=== PATIENT | male | born 1950 | race Hispanic/Latino ===

== ENCOUNTER 2017-10-18 05:24 | Emergency (ER) | payer MEDICARE, BC ==
[2017-10-18 05:32] VITALS: TEMP 98.9
--- NOTE | 2017-10-18 05:44 | ED PDOC ---
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 Patient states he missed a step as he was going down the stairs and fell onto his back and left knee. He denies any head injuries or LOC. No further medical complaints. PMD: Dr. Ramirez Past Medical History Reviewed: Historical Data, Nursing Documentation, Vital Signs Vital Signs: Last Vital Signs Temp 98.9 F 10/18/17 05:29 Pulse 74 10/18/17 05:29 Resp 18 10/18/17 05:29 BP 134/78 10/18/17 05:29 Pulse Ox 100 10/18/17 05:29 - Medical History PMH: Anxiety, HTN - Surgical History Surgical History: No Surg Hx - Family History Family History: States: No Known Family Hx - Social History Current smoker - smoking cessation education provided: No Alcohol: None Drugs: Denies - Allergies Allergies/Adverse Reactions: Allergies Allergy/AdvReac Type Severity Reaction Status Date / Time Penicillins Allergy Mild RASH Verified 10/18/17 05:33 Review of Systems ROS Statement: Except As Marked, All Systems Reviewed And Found Negative Musculoskeletal: Positive for: Back Pain (low), Leg Pain (left knee) Physical Exam - Reviewed Nursing Documentation Reviewed: Yes Vital Signs Reviewed: Yes - Physical Exam Appears: Positive for: No Acute Distress Head Exam: Positive for: ATRAUMATIC, NORMAL INSPECTION, NORMOCEPHALIC Skin: Positive for: Normal Color, Warm, Dry Eye Exam: Positive for: Normal appearance Neck: Positive for: Painless ROM Back: Positive for: Normal Inspection. Negative for: L CVA Tenderness, R CVA Tenderness, Vertebral Tenderness Extremity: Positive for: Normal ROM (left knee full ROM). Negative for: Tenderness, Deformity, Swelling Neurologic/Psych: Positive for: Alert, Oriented - ECG O2 Sat by Pulse Oximetry: 100 (RA) Medical Decision Making Medical Decision Making: Time: 05:33 Initial Impression: 67 y/o male with back pain and knee pain s/p fall Initial Plan: --Knee 3 views LT [RAD] --Lumbar Spine Comp w/ Flex ext [RAD] --Motrin tab 600 mg PO --Reevaluation 06:10 -Left knee xray showed no fracture or dislocation. LS x-ray showed no fracture or dislocation. Patient is medically stable for discharge. Diagnosis knee strain and back contusion ----- Scribe Attestation: Documented by Salomon Correa, acting as a scribe for Santi Pettit MD. Provider Scribe Attestation: All medical record entries made by the Scribe were at my direction and personally dictated by me. I have reviewed the chart and agree that the record accurately reflects my personal performance of the history, physical exam, medical decision making, and the department course for this patient. I have also personally directed, reviewed, and agree with the discharge instructions and disposition. Disposition - Clinical Impression Clinical Impression: Back strain, Knee strain - Disposition Disposition: Routine/Home Disposition Time: 06:10 Condition: STABLE Instructions: Low Back Pain in Adults, Knee Pain Forms: [employer] (Syriac)
[2017-10-18 06:17] VITALS: BP 137/76; PULSE 82; RESP 16; O2SAT 98
--- NOTE | 2017-10-18 08:32 | RAD ---
Date of service: 10/18/2017 PROCEDURE: Left Knee Radiographs. HISTORY: Pain. COMPARISON: None. FINDINGS: BONES: Anterior patellar cortical hyperostoses. No fracture. JOINTS: Minimal medial femoral tibial joint space narrowing -no prominent spurring JOINT EFFUSION: None. OTHER FINDINGS: None. IMPRESSION: No fracture or lytic lesion. Other findings -as above.
--- NOTE | 2017-10-18 08:38 | RAD ---
Date of service: 10/18/2017 PROCEDURE: Radiographs of the Lumbar Spine. HISTORY: pain COMPARISON: No prior. FINDINGS: BONES: Approximately 3 mm anterior subluxation of L4 relative to L5. . No spondylolysis seen No fracture. L4-5 and L5-S1 sclerotic and hypertrophic facet arthrosis. DISC SPACES: Unremarkable. OTHER FINDINGS: Prostatic radiation seeds in place IMPRESSION: No fracture or spondylolysis. L4-5 and L5-S1 sclerotic and hypertrophic arthrosis.
== END 2017-10-18 06:32 | disposition home or self-care (01) ==
LOC: H.ER 05:24
DX: S39.012A Strain of muscle, fascia and tendon of lower back, initial encounter (principal); S83.92XA Sprain of unspecified site of left knee, initial encounter; W19.XXXA Unspecified fall, initial encounter; Y92.89 Other specified places as the place of occurrence of the external cause; F41.9 Anxiety disorder, unspecified; I10 Essential (primary) hypertension; Z88.0 Allergy status to penicillin

== ENCOUNTER 2017-10-30 09:52 | Inpatient (IN) | payer MEDICARE, BC ==
[2017-10-30 09:55] VITALS: O2SAT 99; BMI 25.1
--- NOTE | 2017-10-30 10:47 | ED PDOC ---
HPI: Psych/Substance Abuse Time Seen by Provider: 10/30/17 10:21 Chief Complaint (Nursing): Psychiatric Evaluation Chief Complaint (Provider): anxiety History Per: Patient History/Exam Limitations: no limitations Current Symptoms Are (Timing): Intermittent Episodes Modifying Factor(s): None Severity: Moderate Associated Symptoms: Anxiety, Paranoia. denies: Suicidal Plan Additional Complaint(s): 67yo male c/o "needing to take too many pills" - xanax 0.25mg for anxiety and racing thoughts, states has taken xanax for many years, last few days has required more pills for effect, c/o some sleeplessness, denies suicidal thoughts or hallucinations Past Medical History Reviewed: Historical Data, Nursing Documentation, Vital Signs Vital Signs: Last Vital Signs Temp 98.2 F 10/30/17 09:54 Pulse 77 10/30/17 09:54 Resp BP 147/86 10/30/17 09:54 Pulse Ox 99 10/30/17 09:54 - Medical History PMH: Anxiety, Depression, HTN Other PMH: anxiety - Family History Family History: States: Unknown Family Hx - Social History Current smoker - smoking cessation education provided: No Alcohol: None - Home Medications Home Medications: Ambulatory Orders Medication Instructions Recorded ALPRAZolam [Xanax] 0.25 mg PO TID PRN 10/30/17 Azilsartan Med/Chlorthalidone 1 tab PO DAILY 10/30/17 [Edarbyclor 40-12.5 mg Tablet] DULoxetine [Cymbalta] 20 mg PO Q12 10/30/17 - Allergies Allergies/Adverse Reactions: Allergies Allergy/AdvReac Type Severity Reaction Status Date / Time Penicillins Allergy Mild RASH Verified 10/18/17 05:33 - Laboratory Results Result Diagrams: 10/30/17 10:59 10/30/17 10:59 - ECG ECG: Positive for: Interpreted By Md ECG Rhythm: Positive for: Normal ST Segment, Sinus Rhythm Rate: 62 O2 Sat by Pulse Oximetry: 99 Pulse Ox Interpretation: Normal - Radiology X-Ray: Interpreted by Md X-Ray Interpretation: No Acute Disease Medical Decision Making Medical Decision Making: per crisis admit for psychiatric stabilization labs reviewed and clinically unremarkable medically stable for psychiatric admission at time of emergency evaluation Disposition - Clinical Impression Clinical Impression: Anxiety - Patient ED Disposition Is Patient to be Admitted: Yes - Disposition Referrals: Non [facility] Provider, [Primary Care Provider] - Disposition Time: 11:50 Condition: STABLE Forms: [employer] (Bengali) - Pt Status Changed To: Hospital Disposition Of: Inpatient - Admit Certification Admit to Inpatient:: After my assessment, the patient will require hospitalization for at least two midnights. This is because of the severity of symptoms shown, intensity of services needed, and/or the medical risk in this patient being treated as an outpatient. - POA Present On Arrival: None
[2017-10-30 11:04] LABS: BASO % 0.7 % (0.0-2.0); EOS # 0.1 K/uL (0.0-0.7); EOS % 1.4 % (0.0-4.0); HEMOGLOBIN 13.9 g/dL (12.0-18.0); LYMPH # 0.9 K/uL (1.0-4.3); LYMPH % 17.2 % (20.0-40.0); MEAN CELL VOLUME 85.6 fl (80.0-94.0); MEAN CORPUSCULAR HEMOGLOBIN 31.1 pg (27.0-31.0); MEAN CORPUSCULAR HGB CONC 36.3 g/dL (33.0-37.0); MEAN PLATELET VOLUME 6.5 fl (7.2-11.7); MONO # 0.7 K/uL (0.0-0.8); MONO % 12.8 % (0.0-10.0); NEUT # 3.7 K/uL (1.8-7.0); NEUT % 67.9 % (50.0-75.0); NRBC % 0.1 % (0.0-0.0); RBC 4.48 Mil/uL (4.40-5.90); RED CELL DISTRIBUTION WIDTH 13.2 % (11.5-14.5); WHITE BLOOD COUNT 5.4 K/uL (4.8-10.8)
[2017-10-30 11:31] LABS: ALB/GLOB RATIO 1.4 (1.0-2.1); ALBUMIN 4.3 g/dL (3.5-5.0); ALT/SGPT 18 U/L (21-72); AST/SGOT 23 U/L (17-59); BLOOD UREA NITROGEN 21 mg/dl (9-20); CALCIUM 9.8 mg/dL (8.4-10.2); GFR AFRICAN-AMERICAN > 60; GFR NON-AFRICAN AMERICAN > 60
[2017-10-30 11:44] LABS: BARBITURATES, UR NEGATIVE (NEGATIVE); BENZODIAZEPINES, UR POSITIVE (NEGATIVE); OPIATES, UR NEGATIVE (NEGATIVE); PHENCYCLIDINE, UR NEGATIVE (NEGATIVE)
--- NOTE | 2017-10-30 12:54 | RAD ---
Date of service: 10/30/2017 HISTORY: Infiltrate. COMPARISON: Upper FINDINGS: LUNGS: No active pulmonary disease. PLEURA: No significant pleural effusion identified, no pneumothorax apparent. CARDIOVASCULAR: No radiographic findings to suggest acute or significant cardiovascular disease. OSSEOUS STRUCTURES: No significant abnormalities. VISUALIZED UPPER ABDOMEN: Normal. OTHER FINDINGS: None. IMPRESSION: No active disease.
[2017-10-30] MEDS ORDERED: Alum-Mag Hydrox-Simethicone Susp (30 mL) PO PRN (14:22)
[2017-10-30] MEDS ORDERED: Bismuth Subsalicylate 262 mg/15 ml Sus (240 ml) PO PRN (14:22)
[2017-10-30] MEDS ORDERED: Magnesium Hydroxide Susp 30 ml UD PO PRN (14:22)
[2017-10-30 15:27] LABS: HDL CHOLESTEROL 38 MG/DL (30-70)
[2017-10-30 15:37] LABS: LDL CHOLESTEROL 108 mg/dL (0-129)
--- NOTE | 2017-10-30 17:31 | PCM.PSYCH ---
Initial Psychiatric Evaluation - Initial Psychiatric Evaluation Chief Complaint (in patient's own words): came to emergency room complaining of anxiety and panic attacks Patient's Reaction to Hospitalization: signed in voluntarily History of Present Illness and Precipitating Events: Pt is a 67 year old male self referred to this ED secondary to Anxiety and panic attacks. Pt reported that he has been feeling anxious for the last two months and have been experiencing more panic attacks over the last several days. Pt stated that last night, he took 4-5 .25mg Xanax pills to avoid a panic attack, however, he was still unable to sleep. Pt reported he has financial stressors which cause racing thoughts. He stated that he is retired, lives alone and does not have a support system. Pt stated that he experienced a traumatic event last year and did not have anyone to help him. Pt reported that last year, he was on a ladder and fell off. When he fell, the rope was tangled around his feet which caused Pt to hang upside down by his feet for 8 hours until someone finally heard him and helped him. HIstory reveals that in past hears voices at night, however, he is unable to make out what they are saying. He reported that he is nervous to drive and thinks he may hurt someone if he takes a Xanax and begins to drive because the pills make him groggy. . .pt reports panic began approx. 4 five years ago when his sister reportedly 2nd to exposure from 911. pt denies psychiatric care was receiving care from [place] pmd [place]. completed 10th grade, worked for 33 years for [employer] is retired x 10 years, likes to go for walks. is unmarried, no children, mother possibly with undiagnosed depression, pt denies inpt psych adm., denies suicidal attempts. reports approx. 8 panic attacks per month, lasting about 15 min, feeling like world is closing in, just waits for them to pass, when not having panic denies being anxious, cannot pinpoint context of panic (triggers) Current Medications: Active Medications Generic Name Dose Route Start Last Admin Trade Name Freq PRN Reason Stop Dose Admin Acetaminophen 650 mg 10/30/17 14:22 Tylenol 325mg Tab PO Q4 PRN Pain, moderate (4-7) Al Hydrox/Mg Hydrox/Simethicone 30 ml 10/30/17 14:22 Maalox Plus 30 Ml PO Q4 PRN Dyspepsia Alprazolam 0.25 mg 10/30/17 14:39 Xanax PO 11/06/17 14:40 TID PRN Anxiety Bismuth Subsalicylate 524 mg 10/30/17 14:22 Pepto-Bismol PO Q4 PRN Diarrhea Duloxetine HCl 20 mg 10/30/17 21:00 Cymbalta PO Q12 BETSY Home Med 1 tab 10/31/17 09:00 Azilsartan Med/Chlorthalidone [Edarbyclor 40-12.5 Mg Tablet] PO DAILY BETSY Lorazepam 0.5 mg 10/30/17 14:22 Ativan PO 11/13/17 14:23 HS PRN Insomnia Lorazepam 0.5 mg 10/30/17 14:22 Ativan PO 11/13/17 14:23 Q6 PRN Anixety/Agitation Magnesium Hydroxide 30 ml 10/30/17 14:22 Milk Of Magnesia PO HS PRN Constipation Pneumococcal Polyvalent Vaccine 0.5 ml 10/31/17 09:00 Pneumovax 23 Vaccine IM 10/31/17 09:01 .ONCE ONE Past Psychiatric History - Past Psychiatric History Prior Professional Help: treated by private physician assistant primary care with alprazolam for panic History of Abuse: denies History of ETOH/Drug Use: denies History of Family Illness: mother with possible undiagnosed depression Pertinent Medical Hx (Current Medical&Sleep Prob, Allergies): Allergies Allergy/AdvReac Type Severity Reaction Status Date / Time Penicillins Allergy Mild RASH Verified 10/18/17 05:33 ALPRAZolam [Xanax] 0.25 mg PO TID PRN 10/30/17 Azilsartan Med/Chlorthalidone [Edarbyclor 40-12.5 mg Tablet] 1 tab PO DAILY 09/11 DULoxetine [Cymbalta] 20 mg PO Q12 10/30/17 Review of Systems - Psychiatric Psychiatric: Anxiety, Auditory Hallucinations Additional comments: unable to understand denies known command Mental Status Examination - Personal Presentation Personal Presentation: Looks stated age - Affect Affect: Constricted - Motor Activity Motor Activity: Psychomotor Retardation - Reliability in Providing Information Reliability in Providing Information: Fair - Speech Speech: Organized - Formal Thought Process Formal Thought Process: Hallucinations Additional comments: auditory unable to understand does not recognize - Hallucinations/Delusions Hallucinations: Auditory - Obsessions/Compulsions Obsessions: No Compulsions: No - Cognitive Functions Orientation: Person, Place, Situation, Time Sensorium: Alert Attention/Concentration: Attentive Judgement: Imparied, as evidence by: Other - Risk Risk: Suicidal, Withdrawal, Diminished functioning - Strength & Assets Inventory Strength & Assets Inventory: Cooperative (decreased support assisted alprazolam use ) DSM 5 DX - DSM 5 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
--- NOTE | 2017-10-30 17:45 | PCM.BM ---
Treatment Plan Problems - Problems identified on initial assessmt Problem 1 Date Initiated: 10/30/17 Time Initiated: :43 Date resolved: 11/06/17 Assessment reference: NA Status: Active Priority: 1 Problem 2 Date Initiated: 10/30/17 Time Initiated: 44 Date resolved: 11/06/17 Assessment reference: NA Status: Active Priority: 2 Problem 3 Date Initiated: 10/30/17 Time Initiated: 44 Date resolved: 11/06/17 Assessment reference: NA Status: Active Priority: 3 - Milieu Protocol Milieu Narrative: npt admission per badr vital signs and clinical observation per unit protocol and per clinical status prns per unit protocol hospitalist consult increase cymbalta 30mg po [id number] complains of s/s anxiety/depression discharge planning in progress Discharge/Continuing Care - Treatment Team Participation Patient/Family/SO Statement: npt admission per badr vital signs and clinical observation per unit protocol and per clinical status prns per unit protocol hospitalist consult increase cymbalta 30mg po [id number] complains of s/s anxiety/depression discharge planning in progress
--- NOTE | 2017-10-30 17:47 | PCM.BM ---
Treatment Plan Problems - Problems identified on initial assessmt Problem 1 Date Initiated: 10/30/17 Time Initiated: :43 Date resolved: 11/06/17 Assessment reference: NA Status: Active Priority: 1 Problem 2 Date Initiated: 10/30/17 Time Initiated: :44 Date resolved: 11/06/17 Assessment reference: NA Status: Active Priority: 2 Problem 3 Date Initiated: 10/30/17 Time Initiated: 44 Date resolved: 11/06/17 Assessment reference: NA Status: Active Priority: 3 Treatment assets and liabiliti Patient Assests: adapts well, cooperative Patient Liabilities: live alone, poor support system - Milieu Protocol Maintain good personal hygiene: every shift Encourage regular showers, every shift Remind patient to perform daily oral care, every shift Assist patient to perform ADL's Maintain personal safety: every shift Educate patient to report safety concerns to staff, every shift Monitor environment for contraband/sharps Medication safety: Monitor for expected outcome, potential side effects: every shift, Assess barriers to learning: every shift, Assess readiness for medication education: every shift Milieu Narrative: npt admission per badr vital signs and clinical observation per unit protocol and per clinical status prns per unit protocol hospitalist consult increase cymbalta 30mg po [id number] complains of s/s anxiety/depression discharge planning in progress Discharge/Continuing Care - Treatment Team Participation Patient/Family/SO Statement: npt admission per badr vital signs and clinical observation per unit protocol and per clinical status prns per unit protocol hospitalist consult increase cymbalta 30mg po [id number] complains of s/s anxiety/depression discharge planning in progress
--- NOTE | 2017-10-30 18:19 | CARD ---
APPROVED REPORT Date of service: 10/30/2017 <Conclusion> Normal sinus rhythm Normal ECG
[2017-10-31] MEDS ORDERED: Pneumococcal 23-Valent Vaccine IM ONE (09:00)
[2017-10-31] MEDS ORDERED: Patient's Own Med (Azilsartan Med/Chlorthalidone [Edarbyclor 40-12.5 Mg Tablet] 1 TAB) PO SCH (09:00)
[2017-10-31 09:40] LABS: T4 10.5 ug/dl (5.5-11.0)
--- NOTE | 2017-10-31 15:16 | PCM.PYCHPN ---
Psychiatric Progress Note - Psychiatric Progress Note Patient seen today, length of contact: chart reviewed case discussed with team Patient Chief Complaint: reports history of fibromalgia prevously on cymbalta 20mg po bid had cymbalta increase to 60mg po x one dose(received) reports increased generalized body pain pt relates to rx-teaching related to cymbalta(duloxitine) treatment for fibromyalgia. pt requests to have cymbalta returned to 20mg po bid. review that can be done but this would not likely treat reported depression anxiety. pt seen about milieu per staff adherent with treatment. Problems Identified/Issues Discussed: alteration in mood alteration in coping hx fibromyalgia Medical Problems: per chart Diagnostic Results: per psychiatry per medicine per nursing per social work per recreational therapy DSM 5 Symptoms Update: alteration in mood possible side effects of increased cymbalta vs fibromyalgia Medication Change: Yes (decrease cymbalta 20 mg po bid ) Medical Record Reviewed: Yes Consults ordered or reviewed: pt seen by hospitalistt Mental Status Examination - Cognitive Function Orientation: Person, Place, Situation, Time Attention: WNL Concentration: WNL Association: WNL Fund of Knowledge: WN Decription of patient's judgement and insights: impaired - Mood Mood: Depressed, Anxious - Affect Affect: Constricted - Formal Thought Process Formal Thought Process: Hallucinations - Homicidal Ideation Homicidal Ideation: No Goal/Treatment Plan - Goal/Treatment Plan Need for Continued Stay: Remain at risks for inpatient hospitalization, Severe depression anxiety, Discharge may exacerbated symptoms Progress Toward Problem(s) and Goals/Treatment Plan: inpt milieu decrease cymbalta to 20mg po bid (?side effects vs s/s hx fibromyalgia) vital signs and clinical observation per unit protocol and per clinical status prns per unit protocol hospitalist consult review antihypertensive medications discharge planning in progress Estimated Date of D/C: 11/06/17 - Smoking Cessation Smoking Cessation Initiated: No Reason for not providing: pt deferred
[2017-10-31 18:04] LABS: FOLATE 19.5 ng/mL
--- NOTE | 2017-10-31 20:04 | CP.PCM.CON ---
History of Present Illness - History of Present Illness History of Present Illness: 67 yo male with no significant PMH admitted to [facility] because of anxiety and panic attack. Review of Systems - Review of Systems All systems: reviewed and no additional remarkable complaints except (aside from those mentioned above, 12 point system review were negative by me) Past Patient History - Infectious Disease Hx of Infectious Diseases: None - Past Medical History & Family History Past Medical History?: No - Past Social History Smoking Status: Never Smoked Chewing Tobacco Use: No Cigar Use: No Alcohol: None - CARDIAC Hx Cardiac Disorders: Yes Hx Hypertension: Yes - PULMONARY Hx Respiratory Disorders: No - NEUROLOGICAL HX Cerebrovascular Accident: No Hx Seizures: No - HEENT Hx HEENT Problems: No - RENAL Hx Chronic Kidney Disease: No - ENDOCRINE/METABOLIC Hx Endocrine Disorders: No - HEMATOLOGICAL/ONCOLOGICAL Hx Blood Disorders: No Hx Cancer: No Hx Human Immunodeficiency Virus (HIV): No - INTEGUMENTARY Hx Dermatological Problems: No - MUSCULOSKELETAL/RHEUMATOLOGICAL Hx Musculoskeletal Disorders: Yes Hx Back Pain: Yes Hx Falls: No - GASTROINTESTINAL Hx Gastrointestinal Disorders: No - GENITOURINARY/GYNECOLOGICAL Hx Genitourinary Disorders: No Hx Sexually Transmitted Disorders: No - PSYCHIATRIC Hx Anxiety: Yes Hx Depression: Yes Hx Physical Abuse: No Hx Sexual Abuse: No Hx Substance Use: No - SURGICAL HISTORY Hx Surgeries: No - ANESTHESIA Hx Anesthesia: No Meds Allergies/Adverse Reactions: Allergies Allergy/AdvReac Type Severity Reaction Status Date / Time Penicillins Allergy Mild RASH Verified 10/18/17 05:33 - Medications Medications: Current Medications Acetaminophen (Tylenol 325mg Tab) 650 mg PO Q4 PRN PRN Reason: Pain, moderate (4-7) Last Admin: 10/31/17 12:43 Dose: 650 mg Al Hydrox/Mg Hydrox/Simethicone (Maalox Plus 30 Ml) 30 ml PO Q4 PRN PRN Reason: Dyspepsia Alprazolam (Xanax) 0.25 mg PO TID PRN PRN Reason: Anxiety Stop: 11/06/17 14:40 Bismuth Subsalicylate (Pepto-Bismol) 524 mg PO Q4 PRN PRN Reason: Diarrhea Duloxetine HCl (Cymbalta) 20 mg PO Q12 [facility] Home Med (Azilsartan Med/Chlorthalidone [Edarbyclor 40-12.5 Mg Tablet]) 1 tab PO DAILY BETSY Lorazepam (Ativan) 0.5 mg PO HS PRN PRN Reason: Insomnia Stop: 11/13/17 14:23 Last Admin: 10/30/17 22:56 Dose: 0.5 mg Lorazepam (Ativan) 0.5 mg PO Q6 PRN PRN Reason: Anixety/Agitation Stop: 11/13/17 14:23 Losartan Potassium (Cozaar) 25 mg PO DAILY BETSY Last Admin: 10/31/17 08:39 Dose: 25 mg Magnesium Hydroxide (Milk Of Magnesia) 30 ml PO HS PRN PRN Reason: Constipation Physical Exam - Constitutional Appears: No Acute Distress - Head Exam Head Exam: ATRAUMATIC - Eye Exam Eye Exam: absent: Scleral icterus - ENT Exam ENT Exam: Mucous Membranes Moist - Neck Exam Neck exam: Negative for: Meningismus - Respiratory Exam Respiratory Exam: absent: Rales, Rhonchi, Wheezes, Respiratory Distress - Cardiovascular Exam Cardiovascular Exam: REGULAR RHYTHM, +S1, +S2 - GI/Abdominal Exam GI & Abdominal Exam: Soft. absent: Tenderness - Rectal Exam Rectal Exam: Deferred - Extremities Exam Extremities exam: Negative for: pedal edema - Neurological Exam Neurological exam: Alert, Oriented x3 - Psychiatric Exam Psychiatric exam: Normal Affect - Skin Skin Exam: Dry, Intact Results - Vital Signs Recent Vital Signs: Last Vital Signs Temp 97.7 F 10/31/17 16:22 Pulse 68 10/31/17 16:22 Resp 20 10/31/17 16:22 BP 140/77 10/31/17 16:22 Pulse Ox 99 10/30/17 12:58 - Labs Result Diagrams: 10/30/17 10:59 10/30/17 10:59 Labs: Laboratory Results - last 24 hr 10/31/17 10/31/17 07:39 07:39 Ferritin 164.0 Triglycerides 109 Cholesterol 170 LDL Cholesterol Direct 107 HDL Cholesterol 39 Vitamin B12 300 Folate 19.5 Free T4 1.33 Thyroxine (T4) 10.5 TSH 3rd Generation 1.31 Assessment & Plan (1) Anxiety Status: Acute Comment: psyche is managing
--- NOTE | 2017-11-01 16:06 | PCM.PYCHPN ---
Psychiatric Progress Note - Psychiatric Progress Note Patient seen today, length of contact: chart reviewed case discussed with team Patient Chief Complaint: pt reports that has less body pain since decreasing cymbalta from 60mg to 40mg. seen walking in unit staff report adherent with treatment, is walking about unit , wearing hospital pajamas. staff reports eats, watching tv, attended groups. reports feeling anxious at times with some depression with generalized body that varies in terms of place and sensation body aches numbness tingling Problems Identified/Issues Discussed: alteration in mood alteration in coping hx fibromyalgia Medical Problems: per chart Diagnostic Results: per psychiatry per medicine per nursing per social work per recreational therapy DSM 5 Symptoms Update: alteration in moo Medication Change: Yes (start gabapentin 100mg po tid) Medical Record Reviewed: Yes Consults ordered or reviewed: pt seen by hospitalist Mental Status Examination - Cognitive Function Orientation: Person, Place, Situation, Time Attention: WNL Concentration: WNL Association: WNL Fund of Knowledge: WN Decription of patient's judgement and insights: impaired - Mood Mood: Depressed, Anxious - Affect Affect: Constricted - Formal Thought Process Formal Thought Process: Hallucinations - Homicidal Ideation Homicidal Ideation: No Goal/Treatment Plan - Goal/Treatment Plan Need for Continued Stay: Remain at risks for inpatient hospitalization, Severe depression anxiety, Discharge may exacerbated symptoms Progress Toward Problem(s) and Goals/Treatment Plan: inpt milieu decrease cymbalta to 20mg po bid (?side effects vs s/s hx fibromyalgia) vital signs and clinical observation per unit protocol and per clinical status prns per unit protocol given some mood symptoms and history of fibromyalgia will start gabapentin 100mg po tid discharge planning in progress Estimated Date of D/C: 11/06/17 - Smoking Cessation Smoking Cessation Initiated: No Reason for not providing: defers
[2017-11-02] MEDS ORDERED: Alum-Mag Hydrox-Simethicone Susp (30 mL) PO ONE (05:23)
--- NOTE | 2017-11-02 07:46 | CARD ---
APPROVED REPORT Date of service: 11/02/2017 <Conclusion> Normal sinus rhythm Normal ECG
--- NOTE | 2017-11-02 16:53 | PCM.PYCHPN ---
Psychiatric Progress Note - Psychiatric Progress Note Patient seen today, length of contact: chart reviewed case discussed with team Patient Chief Complaint: pt seen walking about unit, pt also noted to be near nursing station interacting with nursing staff, pt. reports fell a little better". reviewed use of gabapentin for pain, anxiety, some effects mood. pt. expresses desire to continue treatment upon discharge ie wishes to go to a center in [place]. Pt. is see interacting with peer trying to be help. Problems Identified/Issues Discussed: alteration in mood alteration in coping hx fibromyalgia Medical Problems: per chart Diagnostic Results: per psychiatry per medicine per nursing per social work per recreational therapy DSM 5 Symptoms Update: some improvement in mood Medication Change: No (start gabapentin 100mg po QID) Medical Record Reviewed: Yes Consults ordered or reviewed: seen by hospitalist Mental Status Examination - Cognitive Function Orientation: Person, Place, Situation, Time Attention: WNL Concentration: WNL Association: WNL Fund of Knowledge: [facility] Decription of patient's judgement and insights: impaired - Mood Mood: Depressed, Anxious Additional comments: some less - Affect Affect: Constricted - Formal Thought Process Formal Thought Process: No Impairment, Hallucinations - Homicidal Ideation Homicidal Ideation: No Goal/Treatment Plan - Goal/Treatment Plan Need for Continued Stay: Remain at risks for inpatient hospitalization, Severe depression anxiety, Discharge may exacerbated symptoms Progress Toward Problem(s) and Goals/Treatment Plan: inpt milieu increase gabapentin to 100mg po qid vital signs and clinical observation per unit protocol and per clinical status prns per unit protocol given some mood symptoms and history of fibromyalgia will increae gabapentin 100mg po tid discharge planning in progress Estimated Date of D/C: 11/06/17 - Smoking Cessation Smoking Cessation Initiated: No Reason for not providing: pt defers
--- NOTE | 2017-11-03 17:42 | PCM.PYCHPN ---
Psychiatric Progress Note - Psychiatric Progress Note Patient seen today, length of contact: chart reviewed case discussed with team Patient Chief Complaint: pt seen seated in activities room, reading magazines. reports last night some increased anxiety, during day remains depressed somewhat improved. staff report pt adherent with medical treatment. pt denies side effects medications, sleeping and eating fair. Problems Identified/Issues Discussed: alteration in mood alteration in coping hx fibromyalgia Medical Problems: per chart Diagnostic Results: per psychiatry per medicine per nursing per social work per recreational therapy DSM 5 Symptoms Update: see above reports decreased generalized body aches Medication Change: No Medical Record Reviewed: Yes Consults ordered or reviewed: pt seen by hospitalist Mental Status Examination - Cognitive Function Orientation: Person, Place, Situation, Time Attention: WNL Concentration: WNL Association: WNL Fund of Knowledge: WN Decription of patient's judgement and insights: impaired - Mood Mood: Depressed, Anxious - Affect Affect: Constricted - Formal Thought Process Formal Thought Process: No Impairment - Homicidal Ideation Homicidal Ideation: No Goal/Treatment Plan - Goal/Treatment Plan Need for Continued Stay: Remain at risks for inpatient hospitalization, Severe depression anxiety, Discharge may exacerbated symptoms Progress Toward Problem(s) and Goals/Treatment Plan: inpt milieu assess response to current regimen continues to report mood symptoms vital signs and clinical observation per unit protocol and per clinical status prns per unit protocol discharge planning in progress Estimated Date of D/C: 11/06/17 - Smoking Cessation Smoking Cessation Initiated: No Reason for not providing: pt defers
--- NOTE | 2017-11-04 14:21 | PCM.PYCHPN ---
Psychiatric Progress Note - Psychiatric Progress Note Patient seen today, length of contact: chart reviewed case discussed with team Patient Chief Complaint: pt seen dressed in street attire, appears to be shaved, seen interacting with peer, reports feeling somewhat less depressed less anxious has been adherent with treatment Problems Identified/Issues Discussed: alteration in mood alteration in coping hx fibromyalgia Medical Problems: per chart Diagnostic Results: per psychiatry per medicine per nursing per social work per recreational therapy DSM 5 Symptoms Update: improving mood improving insomnia Medication Change: No Medical Record Reviewed: Yes Consults ordered or reviewed: pt seen by hospitalist Mental Status Examination - Cognitive Function Orientation: Person, Place, Situation, Time Attention: WNL Concentration: WNL Association: WNL Fund of Knowledge: WN Decription of patient's judgement and insights: impaired - Mood Additional comments: somewhat less - Affect Affect: Constricted - Formal Thought Process Formal Thought Process: No Impairment - Homicidal Ideation Homicidal Ideation: No Goal/Treatment Plan - Goal/Treatment Plan Need for Continued Stay: Remain at risks for inpatient hospitalization, Severe depression anxiety, Discharge may exacerbated symptoms Progress Toward Problem(s) and Goals/Treatment Plan: inpt milieu assess response to current regimen continues to report mood symptoms vital signs and clinical observation per unit protocol and per clinical status prns per unit protocol discharge planning in progress Estimated Date of D/C: 11/06/17 - Smoking Cessation Smoking Cessation Initiated: No Reason for not providing: deferred
[2017-11-04 15:27] LABS: URINE BILIRUBIN NEGATIVE (NEGATIVE); URINE BLOOD NEGATIVE (NEGATIVE); URINE CLARITY CLEAR (Clear); URINE COLOR YELLOW (YELLOW); URINE GLUCOSE (UA) NEG (Normal); URINE LEUKOCYTE ESTERASE NEG Leu/uL (Negative); URINE PROTEIN NEGATIVE (NEGATIVE); URINE UROBILINOGEN 0.2-1.0 mg/dL (0.2-1.0)
--- NOTE | 2017-11-05 19:16 | PCM.PYCHPN ---
Psychiatric Progress Note - Psychiatric Progress Note Patient seen today, length of contact: chart reviewed case discussed with team Patient Chief Complaint: pt seen dressed in street attire, appears to be shaved, seen interacting with peer, reports feeling somewhat less depressed less anxious has been adherent with treatment, denies side effects from medications Problems Identified/Issues Discussed: alteration in mood alteration in coping hx fibromyalgia Medical Problems: per chart Diagnostic Results: per psychiatry per medicine per nursing per social work per recreational therapy DSM 5 Symptoms Update: improving Medication Change: No Medical Record Reviewed: Yes Consults ordered or reviewed: pt seen by hospitalist Mental Status Examination - Cognitive Function Orientation: Person, Place, Situation, Time Attention: WNL Concentration: WNL Association: WN Fund of Knowledge: [facility] Decription of patient's judgement and insights: impaired - Mood Mood: Depressed, Anxious Additional comments: improving - Affect Affect: Broad - Speech Speech: Appropriate - Formal Thought Process Formal Thought Process: No Impairment - Homicidal Ideation Homicidal Ideation: No Goal/Treatment Plan - Goal/Treatment Plan Need for Continued Stay: Remain at risks for inpatient hospitalization, Severe depression anxiety, Discharge may exacerbated symptoms Progress Toward Problem(s) and Goals/Treatment Plan: inpt milieu assess response to current regimen continues to report mood symptoms vital signs and clinical observation per unit protocol and per clinical status prns per unit protocol discharge planning in progress Estimated Date of D/C: 11/06/17 - Smoking Cessation Smoking Cessation Initiated: No Reason for not providing: pt defers
[2017-11-06 06:41] VITALS: PULSE 73; RESP 18; TEMP 97.5
[2017-11-06 08:12] VITALS: BP 139/77
--- NOTE | 2017-11-06 08:50 | PCM.PYCHPN ---
Psychiatric Progress Note - Psychiatric Progress Note Patient seen today, length of contact: chart reviewed case discussed with team Medication Change: No Medical Record Reviewed: Yes Mental Status Examination - Cognitive Function Orientation: Person, Place, Situation, Time Attention: WNL Concentration: WNL Association: WNL Fund of Knowledge: WNL - Mood Mood: Depressed, Anxious - Affect Affect: Broad - Speech Speech: Appropriate - Formal Thought Process Formal Thought Process: No Impairment - Homicidal Ideation Homicidal Ideation: No Goal/Treatment Plan - Goal/Treatment Plan Need for Continued Stay: Remain at risks for inpatient hospitalization, Severe depression anxiety, Discharge may exacerbated symptoms Estimated Date of D/C: 11/06/17
--- NOTE | 2017-11-06 09:28 | PCM.PYCHDC ---
Mental Status Examination - Mental Status Examination Orientation: Person, Place, Situation, Time Memory: Intact Mood: Neutral Affect: Broad Speech: Appropriate Attention: WNL Concentration: WNL Association: WNL Fund of Knowledge: WNL Formal Thought Process: No Impairment Description of patient's judgement and insight: Good I/J Psychotic Thoughts and Behaviors: No AH/VH/paranoia/delusions Suicidal Ideation: No Current Homicidal Ideation?: No Discharge Summary - Discharge Note Reason for Hospitalization: Pt is a 67 year old male self referred to this ED secondary to Anxiety and panic attacks. Pt reported that he has been feeling anxious for the last two months and have been experiencing more panic attacks over the last several days. Pt stated that last night, he took 4-5 .25mg Xanax pills to avoid a panic attack, however, he was still unable to sleep. Pt reported he has financial stressors which cause racing thoughts. He stated that he is retired, lives alone and does not have a support system. Pt stated that he experienced a traumatic event last year and did not have anyone to help him. Pt reported that last year, he was on a ladder and fell off. When he fell, the rope was tangled around his feet which caused Pt to hang upside down by his feet for 8 hours until someone finally heard him and helped him. HIstory reveals that in past hears voices at night, however, he is unable to make out what they are saying. He reported that he is nervous to drive and thinks he may hurt someone if he takes a Xanax and begins to drive because the pills make him groggy. . .pt reports panic began approx. 4 five years ago when his sister reportedly 2nd to exposure from 911. pt denies psychiatric care was receiving care from a pmd in [place] [address] [place]. completed 10th grade, worked for 33 years for [employer] [place] is retired x 10 years, likes to go for walks. is unmarried, no children, mother possibly with undiagnosed depression, pt denies inpt psych adm., denies suicidal attempts. reports approx. 8 panic attacks per month, lasting about 15 min, feeling like world is closing in, just waits for them to pass, when not having panic denies being anxious, cannot pinpoint context of panic (triggers) Consultations:: List each consultation separately and include: 1. Reason for request. 2. Findings. 3. Follow-up Consultations: Medicine consult Summary of Hospital Course include:: 1. Description of specific treatment plan utilized for patients during their course of treatmen. 2. Summarize the time- course for resolution of acute symptoms and/or regressed behaviors. 3. Describe issues identified and worked on during hospitalization. 4. Describe medication utilized. 5. Describe medical problems identified and treated. 6. Reassessment of suicide risk Summary of Hospital Course: Patient admitted to the geriatric psychiatry unit. Individual and group therapy were provided. Patient was stabilized on Xanax (PRN for panic attacks) , Cymbalta, and Trazodone. He reports improvement in depression and anxiety and is currently psychiatrically stable for discharge. No AH/VH/paranoia/ delusions/SI/HI. Psychoeducation provided. - Diagnosis (1) Major depressive disorder Current Visit: Yes Status: Acute (2) Generalized anxiety disorder with panic attacks Current Visit: Yes Status: Acute - Final Diagnosis (DSM 5) Condition upon Discharge: STABLE DSM 5: Major Depressive Disorder; Generalized Anxiety Disorder w/ Panic Attacks Disposition: HOME/ ROUTINE Follow-up Treatment Plan: -Discharge with outpatient follow-up Prescriptions/Medication Reconciliation: ALPRAZolam [Xanax] 0.25 mg PO Q12 PRN #60 tab PRN Reason: Anxiety DULoxetine [Cymbalta] 20 mg PO BID #60 ecc Gabapentin [Neurontin] 100 mg PO QID #120 cap traZODone [Desyrel] 50 mg PO HS #30 tab - Smoking Cessation Smoking Cessation Medication prescribed: No Reason for not providing: Not indicated - Antipsychotic Medications Pt discharged on 2 or more routine antipsychotic medications: No
== END 2017-11-06 14:00 | disposition home or self-care (01) | DRG 885 ==
LOC: H.ER 09:52 → SUPCPDRO 09:52 → H.ERHOLD 12:04 → H.STEP 13:58
PROVIDERS: ADMIT Psychiatry & Neurology Psychiatry; ATTEND Psychiatry & Neurology Psychiatry
PROC: GZHZZZZ Group Psychotherapy (ICD-10-PCS; principal; 2017-10-30)
PROC: GZ58ZZZ Individual Psychotherapy, Cognitive-Behavioral (ICD-10-PCS; 2017-10-30)
PROC: 3E0234Z Introduction of Serum, Toxoid and Vaccine into Muscle, Percutaneous Approach (ICD-10-PCS; 2017-10-31)
DX: F32.3 Major depressive disorder, single episode, severe with psychotic features (principal); F41.0 Panic disorder [episodic paroxysmal anxiety]; F41.1 Generalized anxiety disorder; I10 Essential (primary) hypertension; M79.7 Fibromyalgia; G47.00 Insomnia, unspecified; Z23 Encounter for immunization; Z88.0 Allergy status to penicillin